=== PATIENT | female | born 1965 | race African-American/Black ===

== ENCOUNTER 2021-03-14 11:25 | Outpatient (CLI) | payer OTHER, SELFPAY ==
--- NOTE | ~2021-03-14 | MM_ITS ---
EXAMINATION: MM screening rafat BI w karina HISTORY: Screening mammogram TECHNIQUE: Craniocaudal and mediolateral oblique 3-D tomosynthesis images were obtained and synthetic 2-D images were generated. CAD analysis was submitted and interpreted. COMPARISON: 04/17/2019 BREAST PARENCHYMAL COMPOSITION: There are scattered areas of fibroglandular density. FINDINGS: There is no evidence of suspicious mass, calcification, or architectural distortion to sugg est malignancy in either breast. There has been no suspicious interval change. IMPRESSION: 1. No mammographic evidence of malignancy. 2. Recommend routine screening mammography in one year. BI-RADS Category 1: Negative Reviewed, dictated and finalized at location A. SETTER
== END 2021-03-14 11:26 | disposition home or self-care (01) ==
PROVIDERS: PCP Family Medicine; Visit Provider Obstetrics & Gynecology
DX: Z12.31 Encounter for screening mammogram for malignant neoplasm of breast (principal)
CPT/HCPCS: 77063; 77067

== ENCOUNTER 2023-03-04 09:57 | Outpatient (CLI) | payer OTHER, SELFPAY ==
--- NOTE | ~2023-03-04 | MM_ITS ---
EXAMINATION: MM screening rafat BI w karina HISTORY: Screening mammogram TECHNIQUE: Craniocaudal and mediolateral oblique 3-D tomosynthesis images were obtained and synthetic 2-D images were generated. CAD analysis was submitted and interpreted. COMPARISON: 03/14/2021, 04/17/2019 BREAST PARENCHYMAL COMPOSITION: There are scattered areas of fibroglandular density. FINDINGS: No suspicious mass, calcification, or architectural distortion are identified in either brian ast to suggest malignancy. There has been no suspicious interval change. IMPRESSION: 1. No mammographic evidence of malignancy. 2. Recommend routine screening mammography in one year. BI-RADS Category 1: Negative Reviewed, dictated and finalized at location A. TLINE JOINER OVERLOCK
== END 2023-03-04 09:58 | disposition home or self-care (01) ==
LOC: ANHIMG 10:01
PROVIDERS: PCP Family Medicine; Visit Provider Obstetrics & Gynecology
DX: Z12.31 Encounter for screening mammogram for malignant neoplasm of breast (principal)
CPT/HCPCS: 77063; 77067

== ENCOUNTER 2024-07-30 07:53 | Outpatient (CLI) | payer OTHER, SELFPAY ==
--- NOTE | ~2024-07-30 | MM_ITS ---
EXAMINATION: MM screening rafat BI w karina HISTORY: Screening TECHNIQUE: Craniocaudal and mediolateral oblique 3-D tomosynthesis images were obtained and synthetic 2-D images were generated. CAD analysis was submitted and interpreted. COMPARISON: Comparison to multiple prior studies sequentially, with oldest reviewed study dated 04/17. BREAST PARENCHYMAL COMPOSITION: Not dense: There are scattered areas of fibroglandular density. FINDINGS: There is no evidence of suspicious mass, calcification, or architectural distortion to sugg est malignancy in either breast. There has been no suspicious interval change. IMPRESSION: 1. No mammographic evidence of malignancy. 2. Recommend routine screening mammography in one year. BI-RADS Category 1: Negative Reviewed, dictated and finalized at location A.
--- OUTSIDE RECORDS SUMMARY | 2024-07-30 08:10 | XMS_ITS | Referral Summary ---
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 Name Role Phone Corrine Robert NP Primary Care Provider [phone] Encounters Date Type Department Care Team Description 07/30/2024 Results Follow-Up Family Care at [address] [address] Corrine Robert NP 07/10/2024 3:20 PM CDT Lab [address] [id number] Annual physical exam; Screening for diabetes mellitus; Screening for lipid disorders; Screening for deficiency anemia; Need for hepatitis C screening test; Need for hepatitis B screening test; Screening for thyroid disorder 07/10/2024 2:30 PM CDT Office Visit Family Care at [address] [address] Corrine Robert NP Annual physical exam (Primary Dx); Hyperpigmentation; Screening for diabetes mellitus; Screening for lipid disorders; Screening for thyroid disorder; Screening for deficiency anemia; Screening for depression; Need for hepatitis C screening test; Need for hepatitis B screening test; Referred by primary care physician from Last 3 Months Allergies Active Allergy Reactions Criticality Noted Date Comments Metronidazole Hives Medium 01/04/2019 Fluconazole Hives,Rash Medium 01/04/2019 Shellfish Derived Itching Low 04/05/2020 Medications estradiol (ESTRACE) 1 mg tablet TK 1 T PO QD 1 9 Active valACYclovir (VALTREX) 500 mg tablet TK 1 T PO Q 12 H FOR 7 DAYS THEN 1 T DAILY 0 9 Active multivitamin capsule Take 1 capsule by mouth daily 07/11/19 Discontinu ed(Patient Reported) bifidobacteri bifid.and longum 460 mg (9-1 bill.cell) capsule Take by mouth 07/11/19 Discontinu ed(Patient Reported) ibuprofen (ADVIL,MOTRIN) 800 mg tablet 9 07/11/19 25 Discontinu ed(Patient Reported) omeprazole (PriLOSEC) 20 mg capsule Take 1 capsule (20 mg total) by mouth 2 (two) times a day before breakfast and dinner 28 capsule 9 07/11/19 Discontinu ed(Patient Reported) clindamycin (CLEOCIN) 300 mg capsule 9 07/11/19 Discontinu ed(Patient Reported) benzocaine-ment hoL (CEPACOL) 15-3.6 mg lozenge Dissolve 1 lozenge in the mouth every 2 (two) hours as needed (pharyngitis) 18 lozenge 1 07/11/19 Discontinu ed(Patient Reported) Active Problems Problem Noted Date Diagnosed Date Class 1 obesity without seri ous comorbidity with body mass index (BMI) of 31.0 to 31.9 in adult 07/30/2024 Assessment & Plan (07/30/2024 6:45 AM CDT): Wt Readings from Last 3 Encounters: 07/10/24 77.8 kg (171 lb 9.6 oz) 12/18/22 82 kg (180 lb 12.4 oz) 09/14/20 78 kg (172 lb) BMI Follow-up includes: education provided. 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 09/25/2019 Assessment & Plan (09/25/2019 4:03 PM CDT): Pt states long standing watering since she was a teen but worse lately -No sign of NLDO/stenosis today +h/o contact lens (CL) wear; extended wear +eye rubbing/mucous fishing Plan: -avoid rubbing/touching eyes -sleep with sleep Mask at night -RX FML drops QID both eyes (OU) X 2 weeks then BID X 2 weeks -hold contact lens (CL) wear for now -RTC 1 month Abnormal UGI series 09/14/2018 Overview (09/14/2018): Added automatically from request for surgery [id number] Lower abdominal pain 09/14/2018 Overview (09/14/2018): Added automatically from request for surgery [id number] Epigastric abdominal pain 09/14/2018 Overview (09/14/2018): Added automatically from request for surgery [id number] Resolved Problems Problem Noted Date Diagnosed Date Resolved Date Colon cancer screening 09/14/201807/10 Overview (09/14/2018): Added automatically from request for surgery [id number] Immunizations Immunization Administration Dates Next Due Influenza, Split 03/28/2017 Influenza, Unspecified 05/27/2024(Deferred: Frida ent Refused) Tdap 12/07/2018 Social History Tobacco Use Types Packs/Day Years Used Date Smoking Tobacco: Never Smokeless Tobacco: Never Tobacco Cessation:Counseling Given: No Alcohol Use Standard Drinks/Week Comments Not Currently 0 (1 standard drink = 0.6 oz pur e alcohol) AUDIT-C Answer Date Recorded Q1: How often do you have a drink containing alcohol? Never 07/10/2024 Q2: How many drinks containi ng alcohol do you have on a typical day when you are drinking? Patient does not drink Q3: How often do you have si x or more drinks on one occasion? Never 07/10/2024 PHQ-2 Answer Date Recorded PHQ-2 Total Score 0 07/10/2024 PHQ-9 Answer Date Recorded PHQ-9 Total Score 0 07/10/2024 Personal Safety Answer Date Recorded Have you ever been in or are you currently in a harmful physical or emotional relationship or is someone making you feel afraid or unsafe? Denies 12/18/2022 Comments No Sex and Gender Information Value Date Recorded Sex Assigned at Not on file Legal Sex Female 9:26 AM [employer] Gender Identity Not on file Sexual Orientation Not on file Last Filed Vital Signs Vital Sign Reading Time Taken Comments Blood Pressure 133/80 07/10/2024 2:28 PM CDT Pulse 70 07/10/2024 2:28 PM CDT Temperature 36.7 C (98 F) 07/10/2024 2:28 PM CDT Respiratory Rate 20 07/10/2024 2:28 PM CDT Oxygen Saturation 98% 07/10/2024 2:28 PM CDT Inhaled Oxygen Concentration - - Weight 77.8 kg (171 lb 9.6 oz) 07/10/2024 2:28 P M CDT Height 157.5 cm (5' 2 ) 07/10/2024 2:28 PM CDT Body Mass Index 31.39 07/10/2024 2:28 PM CDT Plan of Treatment Not on file Procedures Procedure Name Priority Date/Time Associated Diagnosis Comments EGFR Routine 07/10/2024 3:32 PM CDT Annual physical exam Screening for diabetes mellitus Screening for lipid disorders DIFFERENTIAL AUTO Routine 07/10/2024 3:3 2 PM CDT Annual physical exam Screening for deficiency anemia LIPID PANEL Routine 07/10/2024 3:32 PM CDT Annual physical exam Screening for lipid disorders THYROID FUNCTION CASCADE Routine 07/10/2024 3:32 PM CDT Annual physical exam Screening for thyroid disorder Screening for deficiency anemia CBC WITH AUTO DIFFERENTIAL Routine 07/10/2024 3:32 PM CDT Annual physical exam Screening for deficiency anemia COMPREHENSIVE METABOLIC PANEL Routine 07/10/2024 3:32 PM CDT Annual physical exam Screening for diabetes mellitus Screening for lipid disorders HEMOGLOBIN A1C Routine 07/10/2024 3:32 PM CDT Annual physical exam Screening for diabetes mellitus URINALYSIS AND REFLEX TO MICROSCOPIC AND CULTURE Routine 07/10/2024 3:22 PM CDT Annual physical exam Screening for diabetes mellitus HEPATITIS B SURFACE ANTIGEN Routine 07/10/2024 3:22 PM CDT Need for hepatitis B screening test HEPATITIS B CORE ANTIBODY, TOTAL Routine 07/10/2024 3:22 PM CDT Need for hepatitis B screening test HEPATITIS B SURFACE ANTIBODY (IMMUNE STATUS) Routine 07/10/2024 3:22 PM CDT Need for hepatitis B screening test HEPATITIS C ANTIBODY Routine 07/10/2024 3:22 PM CDT Need for hepatitis C screening test COLONOSCOPY 12/04/2018 10:58 AM CDT from Last 3 Months or Most Recently Relevant to Health Maintenance Results * eGFR (07/10/2024 3:32 PM CDT) eGFR 69 >=60 mL/min/1. 73 m2 Comment: Interpretive Data Reference Interval Normal >/= 90 mL/min/1.73m2 Mildly decreased* 60 - 89 mL/min/1.73m2 Mildly to moderately decreased 45 - 59 mL/min/1.73m2 Moderately to severely decreased 30 - 44 mL/min/1.73m2 Severely decreased 15 - 29 mL/min/1.73m2 Kidney Failure < 15 mL/min/1.73m2 *Relative to young adult level Estimated glomerular filtration rate is determined by the 2020 CKD-EPI equation recommended by the National Kidney Foundation (A Unifying Approach to GFR Estimation: Recommendations of the NKF-ASK Task Force on Reassessing the Inclusion of Race in Diagnosing Kidney Disease, JASN 2020). The CKD-EPI equation should not be used for patients with unstable renal function and has not been validated in children and those over 70. Current interpretive data was last reviewed 2021. Blood 07/10/2024 3:32 PM CDT 07/10/2024 3:32 PM CDT us Corrine Robert NP LAB BLOOD ORDERABLES Final Resul t [facility] [address] [place] [address] * Differential, auto (07/10/2024 3:32 PM CDT) Neutrophil abs 4.34 1.50 - 6.50 K/cumm Imm gran abs 0.02 0.00 - 0.10 K/cumm [facility] Lymphocyte abs 3.19 0.80 - 3.30 K/cumm [facility] Monocyte abs 0.54 0.20 - 0.80 K/cumm [facility] Eosinophil abs 0.22 0.00 - 0.50 K/cumm [facility] Basophil abs 0.05 0.00 - 0.10 K/cumm [facility] Neutrophil pct 51.9 % [facility] Comment: Interpretive Data Percent cell count reference ranges are not reported, since discordance with absolute values may lead to misinterpretation of CBC data. Current Interpretive Data was last revised on 2017. Imm gran pct 0.2 % [facility] Comment: Interpretive Data Percent cell count reference ranges are not reported, since discordance with absolute values may lead to misinterpretation of CBC data. Current Interpretive Data was last revised on 2017. Lymphocyte pct 38.2 % [facility] Comment: Interpretive Data Percent cell count reference ranges are not reported, since discordance with absolute values may lead to misinterpretation of CBC data. Current Interpretive Data was last revised on 2017. Monocyte pct 6.5 % [facility] Comment: Interpretive Data Percent cell count reference ranges are not reported, since discordance with absolute values may lead to misinterpretation of CBC data. Current Interpretive Data was last revised on 2017. Eosinophil pct 2.6 % [facility] Comment: Interpretive Data Percent cell count reference ranges are not reported, since discordance with absolute values may lead to misinterpretation of CBC data. Current Interpretive Data was last revised on 2017. Basophil pct 0.6 % [facility] Comment: Interpretive Data Percent cell count reference ranges are not reported, since discordance with absolute values may lead to misinterpretation of CBC data. Current Interpretive Data was last revised on 2017. Blood 07/10/2024 3:32 PM CDT 07/10/2024 3:32 PM CDT Corrine Robert NP LAB BLOOD ORDERABLES Final Resul t Performing Organization Address City/[facility] Co de Phone Number [facility] CABALLERO [phone] [facility] [employer] [place], [place] [id number] * Thyroid Function [place] (07/10/2024 3:32 PM CDT) TSH 1.14 0.30 - 4.20 mcIUnit/mL Blood 07/10/2024 3:32 PM CDT 07/10/2024 3:32 PM CDT Corrine Robert NP LAB BLOOD ORDERABLES Final Resul t Performing Organization Address [facility] Co de Phone Number TASHA CABALLERO [address] [address] [facility] [place] [place] [address] * CBC with auto differential (07/10/2024 3:32 PM CDT) WBC 8.36 3.80 - 9.90 K/cumm Hgb 14.0 11.9 - 15.5 g/dL [facility] Hct 42.0 35.6 - 45.5 % [facility] Plt 330 150 - 400 K/cumm [facility] MPV 9.4 9.1 - 12.3 fL [facility] RBC 4.69 3.90 - 5.20 M/cumm [facility] MCV 89.6 81.3 - 96.4 fL [facility] MCH 29.9 27.1 - 33.3 pg [facility] MCHC 33.3 32.3 - 35.7 g/dL [facility] RDW CV 13.9 11.1 - 14.9 % [facility] RDW SD 45.5 35.7 - 48.1 fL [facility] NRBC abs 0.00 0.00 - 0.01 K/cumm [facility] Blood 07/10/2024 3:32 PM CDT 07/10/2024 3:32 PM CDT us Corrine Robert NP LAB BLOOD ORDERABLES Final Resul t Performing Organization Address City/[facility] Co de Phone Number TASHA CABALLERO [address] [address] [facility] [place] [place] [address] * Hemoglobin A1c (07/10/2024 3:32 PM CDT) Hgb A1C 5.6 4.0 - 5.6 % Estimated Average Glucose 114 mg/dL [facility]ALLERO Comment: The ADA recommends reporting an estimated Average Glucose (eAG) with all Hemoglobin A1c results using the equation derived from a study of 507 normal and diabetic adults. Minority populations were underrepresented and children were not included. (Diabetes Care 31:8348-4138, 2008). The eAG is not equivalent to a fasting glucose. Blood 07/10/2024 3:32 PM CDT 07/10/2024 3:32 PM CDT us Corrine Robert NP LAB BLOOD ORDERABLES Final Resul t [facility] [address] [address] [place] [address] * (ABNORMAL) Lipid panel (07/10/2024 3:32 PM CDT) Cholesterol 230(H) 30 - 199 mg/dL Comment: Interpretive Data Ages < or = 19 years Acceptable: <170 mg/dL Borderline high: 170-199 mg/dL High: >or= 200 mg/dL Ages > or = 20 years Desirable: <200 mg/dL Borderline high: 200-239 mg/dL High: >or= 240 mg/dL Literature References: 1. Expert Panel on Integrated Guidelines for Cardiovascular Health and Risk Reduction in Children and Adolescents. Pediatrics 2011;128:S213 2. NCEP Expert Panel. Circulation 2004;110:227 Current Interpretive Data was last revised on 2017. Triglycerides 369(H) <=149 mg/dL [facility]ERO Comment: Interpretive Data Ages < or = 9 years Acceptable: <75 mg/dL Borderline high: 75-99 mg/dL High: >or= 100 mg/dL Ages 10 to 20 years Acceptable: <90 mg/dL Borderline high: 90-129 mg/dL High: >or= 130 mg/dL Ages > or = 20 years Desirable: <150 mg/dL Borderline high: 150-199 mg/dL High: 200-499 mg/dL Very high: >or= 499 mg/dL Literature References: 1. Expert Panel on Integrated Guidelines for Cardiovascular Health and Risk Reduction in Children and Adolescents. Pediatrics 2011;128:S213 2. NCEP Expert Panel. Circulation 2004;110:227 Current Interpretive Data was last revised on 2017. HDL 47 >=40 mg/dL [facility]ALLERO Comment: Interpretive Data Ages < or = 19 years Acceptable: >45 mg/dL Borderline low: 40-45 mg/dL Low: <40 mg/dL Ages > or = 20 years Desirable: >or= 60 mg/dL Low: <40 mg/dL Literature References: 1. Expert Panel on Integrated Guidelines for Cardiovascular Health and Risk Reduction in Children and Adolescents. Pediatrics 2011;128:S213 2. NCEP Expert Panel. Circulation 2004;110:227 Current Interpretive Data was last revised on 2017. LDL, calculated 119 <=129 mg/dL [facility] CABALLERO Comment: Interpretive Data Ages < or = 19 years Acceptable: <110 mg/dL Borderline high: 110-129 mg/dL High: >or= 130 mg/dL Ages > or = 20 years Optimal: <100 mg/dL Near optimal: 100-129 mg/dL Borderline high: 130-159 mg/dL High: >160 mg/dL Calculated using the Corona LDL-C estimating equation. This equation was implemented on 2023. Prior to this date LDL-C was estimated using the Friedewald equation. Literature References: 1. Expert Panel on Integrated Guidelines for Cardiovascular Health and Risk Reduction in Children and Adolescents. Pediatrics 2011;128:S213 2. NCEP Expert Panel. Circulation 2004;110:227 3. Corona Le. CHRIS Cardiol. 2019July 26;5(5):540-548. doi: 10.1001/jamacardio.2020.0013 Current Interpretive Data was last revised on 2023. Non-HDL Cholesterol 183 mg/dL [facility]ALLERO Comment: Interpretive Data Ages < or = 19 years Acceptable: <120 mg/dL Borderline high: 120-144 mg/dL High: >145 mg/dL Ages > or = 20 years When triglycerides are >200 mg/dL, Non-HDL cholesterol is a secondary target of therapy with treatment goals that are 30 mg/dL greater than the LDL cholesterol target. Literature References: 1. Expert Panel on Integrated Guidelines for Cardiovascular Health and Risk Reduction in Children and Adolescents. Pediatrics 2011;128:S213 2. NCEP Expert Panel. Circulation 2004;110:227 Current Interpretive Data was last revised on 2017. Chol/HDL ratio 5 [facility] Blood 07/10/2024 3:32 PM CDT 07/10/2024 3:32 PM CDT Corrine Robert NP LAB [place]LO[place] [address] [place] [address] * Comprehensive metabolic panel (07/10/2024 3:32 PM CDT) Sodium 142 135 - 145 mmol/L Potassium, pl 3.9 3.3 - 4.9 mmol/L [facility] Chloride 103 97 - 110 mmol/L [facility] CO2 28 22 - 32 mmol/L [facility] Anion gap 11 2 - 15 mmol/L [facility] BUN 14 6 - 25 mg/dL [facility] Creatinine 0.95 0.60 - 1.10 mg/dL [facility] Glucose 86 70 - 199 mg/dL [facility] Comment: Interpretive Data Fasting glucose >/= 126 mg/dl is diagnostic for diabetes. Fasting is defined as no caloric intake for at least 8 hours. Fasting glucose between 100 mg/dl to 125 mg/dl is diagnostic of prediabetes. In a patient with classic symptoms of hyperglycemia or hyperglycemic crisis, a random glucose >/= 200 mg/dl is diagnostic for diabetes. In the absence of unequivocal hyperglycemia, results should be confirmed by repeat testing. The classification and Diagnosis of Diabetes Diabetes Care 2021; 46: S19-S40. Current interpretive data was last revised 2022. Calcium 9.8 8.5 - 10.3 mg/dL [facility] Bilirubin, total 0.2 0.1 - 1.2 mg/dL [facility] Protein, pl 7.6 6.5 - 8.5 g/dL [facility] Albumin 4.2 3.5 - 5.0 g/dL [facility] Alk phos 51 40 - 130 Units/L [facility] ALT 13 7 - 45 Units/L [facility] AST 22 10 - 45 Units/L [facility] Blood 07/10/2024 3:32 PM CDT 07/10/2024 3:32 PM CDT Corrine Robert NP LAB BLOOD ORDERABLES Final Resul t Performing Organization Address City/[facility]/ZIP Co de Phone Number T[facility]HA CABALLERO [address] [place] [address] * Urinalysis reflex to microscopic and culture Urine, bladder (07/10/2024 3:22 PM CDT) Color, ur Yellow Yellow Clarity, ur Clear Clear [facility] Specific gravity, ur 1.019 1.003 - 1.030 [facility] pH, urine 6.0 [facility] Comment: Interpretive Data U rine pH is affected by diet, medications, systemic acid-base disturbances, and renal tubular function. pH may affect urinary stone formation. For example, urine pH below 6.0 may help reduce the tendency for calcium phosphate stones and pH greater than 6.0 may reduce the tendency for uric acid stone formation. Source: [facility] [employer] Current Interpretive Data was last revised on 2017 Protein, ur ql Negative Negative [facility] Glucose, ur ql Negative Negative [facility] Ketones, ur Negative Negative [facility] Bilirubin, ur Negative Negative [facility] Blood, ur Negative Negative [facility] Urobilinogen, ur <2.0 <2.0 mg/dL [facility] Nitrite, ur Negative Negative [facility] Leukocyte esterase, ur Negative Negative [facility] UA reflex comment Reflex conditions for microscopic UA and culture not met. [facility] Urine, bladder 07/10/2024 3: 22 PM CDT 07/10/2024 3:35 PM CDT us Corrine Robert NP LAB MICROBIOLOGY - GENERAL ORDER MATILDA Final Result [facility] CABALLERO [address] Department [place] [employer] [place] [address] * Hepatitis C antibody Blood (07/10/2024 3:22 PM CDT) [facility] Hep C Ab Nonreactive Nonreactive Comment: Interpretive Data Nonreactive: Antibodies to HCV not detected. Does NOT exclude the possibility of recent exposure to HCV. Equivocal: Equivocal for HCV antibodies. Supplemental molecular testing will be automatically performed to determine infection status in accordance with current CDC screening recommendations. Reactive: Positive for HCV antibodies. This may represent current or past HCV infection. Supplemental molecular testing will be automatically performed to determine current infection status in accordance with current CDC screening recommendations. Interpretive data was last revised on 2019. Blood 07/10/2024 3:22 PM CDT 07/10/2024 3:31 PM CDT Corrine Robert NP LAB MICROBIOLOGY - GENERAL ORDER MATILDA Final Result Performing Organization Address City/[facility] Co de Phone Number [facility] [address] [place] [address] * Hepatitis B core antibody, total Blood (07/10/2024 3:22 PM CDT) [facility] Hep B core IgG/IgM Nonreactive Nonreactive Comment:Testing performed by : [facility], [address] [place]., [address] Blood 07/10/2024 3:22 PM CDT 07/11/2024 10:04 AM CDT Corrine Robert NP [facility] MICROBIOLOGY - GENERAL ORDER MATILDA Final Result Performing Organization Address City/[facility]/[place] Number [place] [address] [address] [place] [address] * Hepatitis B surface antibody (immune status) Blood (07/10/2024 3:22 PM CDT) [facility] HBsAb (immune status) Nonreactive Comment: Interpretive Data Nonreactive: This result is consistent with a lack of immunity to Hepatitis B Virus when used in the setting of routine screening. Equivocal: The immune status of the individual should be further assessed, if appropriate, after consideration of clinical status, risk factors, and additional diagnostic information. Reactive: This result is consistent with immunity to Hepatitis B Virus when used in the setting of routine screening. Current interpretive data was last revised on 19. Blood 07/10/2024 3:22 PM CDT 07/10/2024 3:31 PM CDT Corrine Robert NP LAB MICROBIOLOGY - GENERAL ORDER MATILDA Final Result Performing Organization Address [facility] de Phone Number TASHA CABALLERO [address] [address] [facility] [place] [address] * Hepatitis B Surface Antigen Blood (07/10/2024 3:22 PM CDT) HepBsAg Nonreactive Nonreactive Blood 07/10/2024 3:22 PM CDT 07/10/2024 3:31 PM CDT Corrine Robert NP LAB MICROBIOLOGY - GENERAL ORDER MATILDA Final Result Performing Organization Address [facility] [place] [address] [address] [facility] [place] [address] * COLONOSCOPY (12/04/2018 10:58 AM CDT) Anatomical Region Laterality Modality Other Narrative Procedure Note Costa Gonzalez MD - 12/04/2018 10:58 AM CDT [facility] Patient Name: Lorie Bateman Procedure Date: 12/04/2018 10:58 AM Date of : 1965 Admit Type: Outpatient Age: 52 Gender: Female Attending MD: Costa Gonzalez M.D. Room: [facility] ENDOSCOPY ROOM 5 Note Status: Finalized Procedure: Colonoscopy Indications: Screening for colorectal malignant neoplasm. Lower abdominal pain. Referring MD: Wilbur Fuller M.D. Providers: Costa Gonzalez M.D., Chilango Rivera M.D. Medicines: Monitored Anesthesia Care Complications: No immediate complications. Estimated Blood Loss: Estimated blood loss was minimal. Procedure: Pre-Anesthesia Assessment: - Prior to the procedure, a History and Physical was performed, and patient medications and allergieswere reviewed. The patient is competent. The risks and benefits of the procedure and the sedation optionsand risks were discussed with the patient. All questions were answered and informed consent was obtained. Patient identification and proposed procedure were verified by the physician in the pre-procedure area. Mental Status Examination: alert and oriented.Airway Examination: normal oropharyngeal airway and neck mobility. Respiratory Examination: clear to auscultation. CV Examination: normal. Prophylactic Antibiotics: The patient does not requireprophylactic antibiotics. Prior Anticoagulants: The patient has taken no previous anticoagulant or antiplateletagents. ASA Grade Assessment: II - A patient with mildsystemic disease. After reviewing the risks and benefits, the patient was deemed in satisfactory condition toundergo the procedure. The anesthesia plan was to usemonitored anesthesia care (MAC). Immediately prior to administration of medications, the patient was re-assessed for adequacy to receive sedatives. The heart rate, respiratory rate, oxygen saturations,blood pressure, adequacy of pulmonary ventilation, and response to care were monitored throughout the procedure. The physical status of the patient was re-assessed after the procedure. - Immediately prior to administration ofmedications, the patient was re-assessed for adequacy to receive sedatives. - The risks and benefits of the procedure and the sedation options and risks were discussed with the patient. All questions were answered and informed consent was obtained. The benefits, risks and alternatives of theprocedure and sedation were discussed and informed consent was obtained. All questions were answered. Please referto the signed informed consent document in the medical record. The scope was passed under direct vision.The [id number] [id number] endoscope was introduced throughthe anus and advanced to the cecum, identified by appendiceal orifice and ileocecal valve. The colonoscopy was performed without difficulty. The patient tolerated the procedure well. The quality of the bowel preparation was good. The bowelpreparation used was CoLyte. Bowel prep was administered using a split dose. Findings: The perianal and digital rectal examinations were normal. A 2 mm polyp was found in the recto-sigmoid colon. The polyp was semi-sessile. The polyp was removed with a cold snare. Resection and retrieval were complete. Verification of patient identification forthe specimen was done. Estimated blood loss was minimal. The exam was otherwise without abnormality on direct and retroflexion views. Impression: - One 2 mm polyp at the recto-sigmoid colon, removed with a cold snare. Resected and retrieved. - The examination was otherwise normal on direct and retroflexion views. Recommendation: - Discharge patient to home. - Resume previous diet. - Continue present medications. - Await pathology results. - Repeat colonoscopy in 5 years for surveillancebased on pathology results. - Return to GI office in 4 weeks. Attending Participation: I was present and participated during the entire procedure from insertion to removal of the endoscope. Electronically signed by Costa Gonzalez MD Costa Gonzalez M.D. 12/04/2018 11:42:12 AM . Number of Addenda: 0 Note Initiated On: 12/04/2018 10:58 AM Recognized by the Citizen Of [employer] [place] [employer] for promoting quality in endoscopy Costa Gonzalez MD ENDOSCOPY PROCEDURES Final Result from Last 3 Months or Most Recently Relevant to Health Maintenance Insurance CIG 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
--- OUTSIDE RECORDS SUMMARY | 2024-07-30 08:10 | XMS_ITS | Encounter Summary ---
Author Organization [facility] Healthcare Address [address] [place] [address] Care Team Providers Care Manager Bar Name Role Phone Corrine Robert NP Primary Care Provider [phone] Encounter Details Date Type Department Care Team (Late st Contact Info) Description 07/30/2024 Results Follow-Up Family Care at [facility] [address] [place] [phone] [place] [id number] [place] [id number] Social History Tobacco Use Types Packs/Day Years Used Date Smoking Tobacco: Never Smokeless Tobacco: Never Alcohol Use Standard Drinks/Week Comments Not Currently [...] on file 

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
--- OUTSIDE RECORDS SUMMARY | 2024-07-30 08:10 | XMS_ITS | Clinical Summary ---
Author Organization [facility] Address [address] [place] [address] Care Team Providers Care Tile Fitter Name Role Phone Yasmany Brower MD Primary Care Provider [phone] Allergies Active Allergy Reactions Criticality Noted Date Comments Fluconazole Hives,Rash Medium 01/04/2019 Metronidazole Hives Medium 01/04/2019 Shellfish-Derived Products Itching Low Medications Cholecalciferol (VITAMIN D) 50 MCG (1999 UT) Tab Take 1 tablet (2,000 Units total) by mouth daily. Active estradiol (ESTRACE) 2 MG tablet Take 1 tablet (2 mg total) by mouth daily. Active Black Cohosh 80 MG Cap Take 80 mg by mouth daily. Active amLODIPine (NORVASC) 5 MG tablet Take 1 tablet (5 mg total) by mouth daily. 30 tablet 1 03/08/2023 Active pravastatin (PRAVACHOL) 20 MG tablet Take 1 tablet (20 mg total) by mouth nightly at bedtime. 30 tablet 03/07/2023 Active Active Problems Problem Noted Date Diagnosed Date Hypertensive urgency 03/07/2023 Social History Tobacco Use Types Packs/Day Years Used Date Smoking Tobacco: Never Smokeless Tobacco: Never Tobacco Cessation:Counseling Given: Not Answered Alcohol Use Standard Drinks/Week Comments Never 0 (1 standard drink = 0.6 oz pur e alcohol) [facility] Utilities Answer Date Recorded In the past 12 months has e electric, gas, oil, or water company threatened to shut off services in your home? No 03/07/2023 Humiliation, Afraid, Rape, and Kick questionnair e Answer Date Recorded Within the last year, have y ou been afraid of your partner or ex-partner? No 03/07/2023 Within the last year, have y ou been humiliated or emotionally abused in other ways by your partner or ex-partner? No Within the last year, have y ou been kicked, hit, slapped, or otherwise physically hurt by your partner or ex-partner? No 03/07/2023 Within the last year, have y ou been raped or forced to have any kind of sexual activity by your partner or ex-partner? No 03/07/2023 AUDIT-C Answer Date Recorded Q1: How often do you have a drink containing alc ohol? Never 09/11/2020 Average Number of Drinks Not on file 021 Frequency of Binge Drinking Not on file 08/26 Overall Financial Resource Strain (CARDIA) Answe r Date Recorded How hard is it for you to pa y for the very basics like food, housing, medical care, and heating? Not very hard 03/07/2023 Hunger Vital Sign Answer Date Recorded Within the past 12 months, y ou worried that your food would run out before you got the money to buy more. Never true 03/07/20 23 Within the past 12 months, t he food you bought just didn't last and you didn't have money to get more. Never true 03/07/2023 PRAPARE - Transportation Answer Date Re corded In the past 12 months, has l ack of transportation kept you from medical appointments or from getting medications? No 02/25 In the past 12 months, has l ack of transportation kept you from meetings, work, or from getting things needed for daily living? No 03/07/2023 Housing Stability Vital Sign Answer Ernst e Recorded In the last 12 months, was t here a time when you were not able to pay the mortgage or rent on time? No 03/07/2023 In the last 12 months, how many places have you lived? 1 03/07/2023 In the last 12 months, was t here a time when you did not have a steady place to sleep or slept in a halfway (including now)? 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 Gender Identity Not on file Sexual Orientation Not on file Last Filed Vital Signs Vital Sign Reading Time Taken Comments Blood Pressure 122/78 03/07/2023 1:37 PM RETURN TO FACTORY CLERK Pulse 71 03/07/2023 8:12 AM RETURN TO FACTORY CLERK Temperature 36.7 C (98 F) 03/07/2023 1:37 PM RETURN TO FACTORY CLERK Respiratory Rate 23 03/07/2023 1:37 PM RETURN TO FACTORY CLERK Oxygen Saturation 99% 03/07/2023 1:37 PM RETURN TO FACTORY CLERK Inhaled Oxygen Concentration - - Weight 83.3 kg (183 lb 10.3 oz) 03/06/2023 8:26 PM RETURN TO FACTORY CLERK Height 157.5 cm (5' 2 ) 03/06/2023 8:26 PM RETURN TO FACTORY CLERK Body Mass Index 33.59 03/06/2023 8:26 PM RETURN TO FACTORY CLERK Plan of Treatment Health Maintenance Due Date Last Done Comments Colorectal Cancer Screening Colonoscopy (10 Years) 1965 Annual Physical 1968 Hepatitis C 12/15/1983 DTaP, Tdap and Td Vaccines ( 1 - Tdap) 1984 Hepatitis B Vaccines (1 of 3 - 19+ 3-dose series) 1984 Mammogram Screening 2005 Pneumococcal Vaccine: 50+ Ye ars (1 of 1 - PCV) 12/15/2015 Zoster Vaccines (1 of 2) 12/15/2015 COVID-19 Vaccine ( - 2023-2 5 season) 2023 Meningococcal B Vaccine Aged Out No l onger eligible based on patient's age to complete this topic Meningococcal Vaccine Aged Out No brittney khadar eligible based on patient's age to complete this topic RSV Immunizations Under 20 Months Aged Out No longer eligible based on patient's age to complete this topic Insurance MEDICAID Advance Directives * Full Code (Latest Code Status on File) Date Activated Date Inactivated Comments 03/07/2023 1:24 AM 03/07/2023 4:59 PM Care Teams Tile Fitter Relationship Specialty Start Date End Date Yasmany Brower MD [address] [place] [address] PCP - General FAMILY PRACTICE 04/05/20
--- OUTSIDE RECORDS SUMMARY | 2024-07-30 08:10 | XMS_ITS | Clinical Summary ---
Author Organization [facility] Address [address] [place] [address] Care Team Providers Care Byproduct Engineer Name Role Phone Corrine Robert NP Primary Care Provider [phone] Allergies Active Allergy Reactions Criticality Noted Date [...] Take 1 capsule by mouth daily 07/11/19 25 Discontinu ed(Patient Reported) bifidobacteri bifid.and longum 460 mg (9-1 bill.cell) capsule Take by mouth 07/11/19 25 Discontinu ed(Patient Reported) ibuprofen (ADVIL,MOTRIN) 800 mg tablet 9 07/11/19 25 Discontinu ed(Patient Reported) omeprazole (PriLOSEC) 20 mg capsule Take 1 capsule (20 mg total) by mouth 2 (two) times a day before breakfast and dinner 28 capsule 9 07/11/19 25 Discontinu ed(Patient Reported) clindamycin (CLEOCIN) 300 mg capsule 9 07/11/19 25 Discontinu ed(Patient Reported) benzocaine-ment hoL (CEPACOL) 15-3.6 mg lozenge Dissolve 1 lozenge in the mouth every 2 (two) hours as needed (pharyngitis) 18 lozenge 1 07/11/19 25 Discontinu ed(Patient Reported) Active Problems Problem Noted [...] (09/14/2018): Added automatically from request for surgery [id number] Lower abdominal pain 09/14/2018 Overview (09/14/2018): Added automatically from request for surgery [id number] Epigastric abdominal pain 09/14/2018 Overview (09/14/2018): Added automatically from request for surgery [id number] Resolved Problems Problem Noted Date Diagnosed Date Resolved Date Colon cancer screening 09/14/201807/10 Overview (09/14/2018): Added automatically from request for surgery [id number] Encounters Date Type Department Care Team Description 07/30/2024 Results Follow-Up Family Care at [address] [id number] Corrine Robert NP 07/10/2024 3:20 PM CDT Lab [address] [address] Annual physical exam; Screening for diabetes mellitus; Screening for lipid disorders; Screening for deficiency anemia; Need for hepatitis C screening test; Need for hepatitis B screening test; Screening for thyroid disorder 07/10/2024 2:30 PM CDT Office Visit Family Care at [address] [phone] Corrine Robert NP Annual physical exam (Primary Dx); Hyperpigmentation; Screening for diabetes mellitus; Screening for lipid disorders; Screening for thyroid disorder; Screening for deficiency anemia; Screening for depression; Need for hepatitis C screening test; Need for hepatitis B screening test; Referred by primary care physician from Last 3 Months Immunizations Immunization Administration Dates Next Due Influenza, Split 03/28/2017 Influenza, Unspecified 05/27/2024(Deferred: Frida ent Refused) Tdap 12/07/2018 Surgical History Surgery Date Site/Laterality Comments CHOLECYSTECTOMY HYSTERECTOMY TUBAL LIGATION Medical History Medical History Date Comments Hypertension Colon cancer screening 09/14/2018 Added aut omatically from request for surgery [id number] Family History Medical History Relation Name Comments Diabetes Brother Diabetes Mother Hypertension Mother Stroke Mother Colon cancer Neg Hx Relation Name Status Comments Brother Mother Social History Tobacco Use Types Packs/Day Years [...] on file 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 Gender Identity Not on file Sexual Orientation Not on file Obstetrics History Last Filed Vital Signs Vital Sign Reading [...] 07/10/2024 2:28 PM CDT Plan of Treatment Health Maintenance Due Date Last Done Comments Breast Cancer Screening-Mammogram 1965 Zoster Vaccine (1 of 2) 12/15/2015 Influenza Vaccine (Season Ended) 2024 03/28/2017 Depression Screening 07/10/2025 07/10/2024, 07/10/2024 Regular Well Visit/Exam 18-64 07/10/2025 07/10/2024 Colon Cancer Screening-Colonoscopy 12/04/2028 12/04/2018 DTaP/Tdap/Td Vaccine (2 - Td or Tdap) 12/07/2028 12/07/2018 Colon Cancer Screening-CT Colonography Discontinued 12/04/2018 Colon Cancer Screening-DNA Stool Discontinued 12/04/2018 Colon Cancer Screening-FIT Discontinued 12/04/2018 Colon Cancer Screening-Sigmoidoscopy Discontinued 12/04/2018 Hepatitis B Screening Completed 07/10/2024 Hepatitis C Screening Completed 07/10/2024 Pneumococcal vaccine <65 Aged Out No longer eligible based on patient's age to complete this topic Procedures Procedure Name Priority Date/Time Associated Diagnosis [...] NP LAB BLOOD ORDERABLES Final Resul t [facility] [address] [address] Department [place] [address] * Differential, auto (07/10/2024 3:32 PM CDT) Neutrophil abs 4.34 1.50 - 6.50 K/cumm Imm gran abs 0.02 0.00 - 0.10 K/cumm [facility] Lymphocyte abs 3.19 0.80 - 3.30 K/cumm [facility] Monocyte abs 0.54 0.20 - 0.80 K/cumm [facility] Eosinophil abs 0.22 0.00 - 0.50 K/cumm [facility] Basophil abs 0.05 0.00 - 0.10 K/cumm [facility] Neutrophil pct 51.9 % TASHA Comment: Interpretive Data Percent cell count reference ranges are not reported, since discordance with absolute values may lead to misinterpretation of CBC data. Current Interpretive Data was last revised on 2017. Imm gran pct 0.2 % [facility] Comment: Interpretive Data Percent cell count reference ranges are not reported, since discordance with absolute values may lead to misinterpretation of CBC data. Current Interpretive Data was last revised on 2017. Lymphocyte pct 38.2 % CERNER Comment: Interpretive Data Percent cell count reference ranges are not reported, since discordance with absolute values may lead to misinterpretation of CBC data. Current Interpretive Data was last revised on 2017. Monocyte pct 6.5 % CERNER Comment: Interpretive Data Percent cell count reference ranges are not reported, since discordance with absolute values may lead to misinterpretation of CBC data. Current Interpretive Data was last revised on 2017. Eosinophil pct 2.6 % CERNER Comment: Interpretive Data Percent cell count reference ranges are not reported, since discordance with absolute values may lead to misinterpretation of CBC data. Current Interpretive Data was last revised on 2017. Basophil pct 0.6 % CERNER Comment: Interpretive Data Percent cell count reference ranges are not reported, since discordance with absolute values may lead to misinterpretation of CBC data. Current Interpretive Data was last revised on 2017. Blood 07/10/2024 3:32 PM CDT 07/10/2024 3:32 PM CDT Corrine Robert NP LAB BLOOD ORDERABLES Final Resul t Performing Organization Address [facility] Co de Phone Number TASHA CABALLERO [address] [place] [address] * Thyroid Function Bremer (07/10/2024 3:32 PM CDT) Pathologist [facility] TSH 1.14 0.30 - 4.20 mcIUnit/mL Blood 07/10/2024 3:32 PM CDT 07/10/2024 3:32 PM CDT Corrine Robert NP LAB BLOOD ORDERABLES Final Resul t Performing Organization Address [facility] Co de Phone Number TASHA CABALLERO [address] [address] [facility] [place] [address] * CBC with auto differential (07/10/2024 3:32 PM CDT) WBC 8.36 3.80 - 9.90 K/cumm Hgb 14.0 11.9 - 15.5 g/dL [facility] Hct 42.0 35.6 - 45.5 % [facility] Plt 330 150 - 400 K/cumm [facility] MPV 9.4 9.1 - 12.3 fL [facility] RBC 4.69 3.90 - 5.20 M/cumm [facility] MCV 89.6 81.3 - 96.4 fL [facility] MCH 29.9 27.1 - 33.3 pg [facility] MCHC 33.3 32.3 - 35.7 g/dL [facility] RDW CV 13.9 11.1 - 14.9 % [facility] RDW SD 45.5 35.7 - 48.1 fL [facility] NRBC abs 0.00 0.00 - 0.01 K/cumm [facility] Blood 07/10/2024 3:32 PM CDT 07/10/2024 3:32 PM CDT Corrine Robert NP LAB BLOOD ORDERABLES Final Resul t Performing Organization Address [facility] de Phone Number [facility] [address] [address] [place] [address] * Hemoglobin A1c (07/10/2024 3:32 PM CDT) [facility] Hgb A1C 5.6 4.0 - 5.6 % Estimated Average Glucose 114 mg/dL [facility] Comment: The ADA recommends reporting an estimated Average Glucose (eAG) with all Hemoglobin A1c results using the equation derived from a study of 507 normal and diabetic adults. Minority populations were underrepresented and children were not included. (Diabetes Care 31:3952-9144, 2008). The eAG is not equivalent to a fasting glucose. Blood 07/10/2024 3:32 PM CDT 07/10/2024 3:32 PM CDT Corrine Robert NP LAB BLOOD ORDERABLES Final Resul t Performing Organization Address City/[facility] Co de Phone Number [facility] [address] [address] [facility] [place] [address] * (ABNORMAL) Lipid panel (07/10/2024 3:32 PM [...] NCEP Expert Panel. Circulation 2004;110:227 3. Corona M et al. CHRIS Cardiol. 2020 July 26;5(5):540-548. doi: 10.1001/jamacardio.2020.0013 Current Interpretive Data was [...] last revised on 2017. Chol/HDL ratio 5 [facility]HA Blood 07/10/2024 3:32 PM CDT 07/10/2024 3:32 PM CDT us Corrine Robert NP LAB BLOOD ORDERABLES Final Resul t [facility] CABALLERO [address] [address] [place] [address] * Comprehensive metabolic panel (07/10/2024 3:32 PM [...] classification and Diagnosis of Diabetes Diabetes Care 202; 46: S19-S40. Current interpretive data was last [...] LAB BLOOD ORDERABLES Final Resul t T[facility]HA [address] [address] Department [place] [address] * Urinalysis reflex to microscopic [...] tendency for uric acid stone formation. Source: [facility] Current Interpretive Data was last revised on [...] for microscopic UA and culture not met. [facility] Urine, bladder 07/10/2024 3: 22 PM CDT 07/10/2024 3:35 PM CDT Corrine Robret NP LAB MICROBIOLOGY - GENERAL ORDER MATILDA Final Result Performing Organization Address [facility] de Phone Number TASHA ADA [address] [address] [place] [address] * Hepatitis C antibody Blood (07/10/2024 3:22 PM CDT) Hep C Ab Nonreactive Nonreactive Comment: Interpretive [...] ORDER MATILDA Final Result Performing Organization Address [facility] Co de Phone Number TASHA [address] [address] Burns [facility] [place] [address] * Hepatitis B core antibody, total Blood (07/10/2024 3:22 PM CDT) Pathologist [facility] Hep B core IgG/IgM Nonreactive Nonreactive Comment:Testing performed by : [facility], [address] [place]., [address] Blood 07/10/2024 3:22 PM CDT 07/11/2024 10:04 AM CDT Corrine Robert NP LAB MICROBIOLOGY - GENERAL ORDER MATILDA Final Result Performing Organization Address [facility] Co de Phone Number TASHA CABALLERO [address] [address] [place] [address] * Hepatitis B surface antibody (immune status) Blood (07/10/2024 3:22 PM CDT) Pathologist [facility] HBsAb (immune status) Nonreactive Comment: Interpretive Data [...] - GENERAL ORDER MATILDA Final Result [facility] ADA [address] [address] [place] [address] * Hepatitis B Surface Antigen Blood (07/10/2024 3:22 PM CDT) Pathologist [facility] HepBsAg Nonreactive Nonreactive Blood 07/10/2024 3:22 PM CDT 07/10/2024 3:31 PM CDT us Corrine Jakob SOFI LAB MICROBIOLOGY - GENERAL ORDER MATILDA Final Result T[facility]HA [address] [facility] Department [place] [address] * COLONOSCOPY (12/04/2018 10:58 AM CDT) Anatomical Region Laterality Modality Other Narrative Procedure Note Costa Gonzalez MD - 12/04/2018 10:58 AM CDT [facility] Patient Name: Lorie Coffee Procedure Date: 12/04/2018 10:58 AM Date of : 1965 Admit Type: Outpatient Age: 52 Gender: Female Attending MD: Costa Gonzalez M.D. Room: [facility] ENDOSCOPY ROOM 5 Note Status: Finalized Procedure: [...] was passed under direct vision.The PCF [id number] endoscope was introduced throughthe anus and advanced [...] On: 12/04/2018 10:58 AM Recognized by the [employer] for promoting quality in endoscopy Costa Gonzalez MD ENDOSCOPY PROCEDURES Final Result from Last 3 Months or Most Recently Relevant to Health Maintenance Insurance [facility] Advance Directives For more information, please contact: [phone] * Full Code (Latest Code Status on File) Date Activated Date Inactivated Comments 12/04/2018 9:23 AM 12/04/2018 4:19 PM Care Teams Byproduct Engineer Relationship Specialty [place] [address] [address] [facility] [address] [place] [address] PCP - General Family Medicine 07/10/24
--- OUTSIDE RECORDS SUMMARY | 2024-07-30 08:10 | XMS_ITS | Continuity of Care Document ---
Author Organization [facility] Address [address] [place] [address] [facility] [address] [place] [address] Phone Care Team Providers Care Hiv/Aids Care Nurse Name Role Phone Zendiamond Juan Antonio Unavailable Unavailable Procedures Procedure Date Office Consultation Advance Directives Directive Yes / No Effective Date File Name No Information Encounters Encounter Description Practice Location Reason(s) For Visit Diagnoses Date Provider Providers Copied on Encounter Office Consultation [facility], [address], [place], [place], [id number], [place] tel:[phone] [facility] No Information May- 7-200 8 Frankie Juan Antonio. [address] [facility] [address], [address], [place]. tel:[phone] Referring Provider: Fernanda Ruth OD, [address] [facility], [place], [address]. tel:[phone] Family History Family Member Type Diagnosis Age At Onset No Information Payers Payer name Insurance type Covered republican ID Authoriza tialbert(s) Medicaid [facility] [id number] Social History Type Description Quantity Date Captured [...]
--- OUTSIDE RECORDS SUMMARY | 2024-07-30 08:11 | XMS_ITS | Clinical Summary ---
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 Gender Identity Not on file Sexual Orientation Not on file Plan of Treatment Health Maintenance Due Date Last Done Comments Hepatitis C Virus (HCV) Screening 1965 TdaP Immunization 1965 Hepatitis B Immunization (1 of 3 - 19+ 3-dose series) 1984 Pap Smear 1986 Cervical Cancer Screening (CCS) 12/15/1995 HPV/Cotest 12/15/1995 Colonoscopy 2010 Colorectal Cancer Screening 2010 Cologuard 12/15/2015 Immunochemical Fecal Occult Blood 12/15/2015 Mammogram 12/15/2015 Pneumococcal Immunization (5 0+ years) (1 of 1 - PCV) 12/15/2015 Zoster Immunization (1 of 2) 12/15/2015 Influenza Immunization (#1) 2023 SARS-COV-2 Immunization ( - 2023- season) 2023 Respiratory Syncytial Virus (RSV) Immunization (Adult) (1 - 1-dose 75+ series) 2040 Meningococcal Immunization (ACWY) Aged Out No longer eligible based on patient's age to complete this topic Pneumococcal Immunization Combined Aged Out No longer eligible based on patient's age to complete this topic Rotavirus Immunization Aged Out No lo nger eligible based on patient's age to complete this topic
--- OUTSIDE RECORDS SUMMARY | 2024-07-30 08:11 | XMS_ITS | Patient Health Record ---
Author Organization [facility] [place] ([address]) Address [address] [place] [address] Care Team Providers Care Spa Manager/Esthetician Name Role Phone Yasmany Morales Primary Care Provider Unavailab Jessica Reveles Unavailable [phone] [facility], Provider Unavailable Unavailab maria fernanda Allergies Allergen (clinical drug ingredient) Drug/Non Drug Allergy documented on EMR Reaction Allergy Type Onset Date Status fluconazole Diflucan Rash Drug Allergy Activ e Reason For Referral No Information Medications Medication SIG (Take, Route, Frequency, Duration) Notes Start Date End Date Status ESTRADIOL 1 mg TK 1 T PO QD for 90 Active Clotrimazole 1 % 1 karen applied topically 2 times a day for 7 day(s) 03/05/2019 Active PEG-3350 WITH ELECTROLYTES - for 1 *Please review for potential replacement for e-prescription and drug interaction check* Active Estradiol 1 MG TK 1 T PO QD for 90 Active CLOTRIMAZOLE TOPICAL 1% 1 karen applied topically 2 times a day for 7 day(s) 03/05/2019 Active MICONAZOLE TOPICAL 2% 1 karen applied topically 2 times a day for 14 day(s) 03/05/2019 Active Miconazole Nitrate 2 % 1 karen applied topically 2 times a day for 14 day(s) 03/05/2019 Active TIOCONAZOLE TOPICAL 6.5% 1 APPFUL INTRAVAGINALLY ONCE A DAY (AT BEDTIME) for 1 DAY(S) *Please review for potential replacement for e-prescription and drug interaction check* 03/05/2019 Active Social History Tobacco Use: Social History Observation Description Date Details (start date - stop date) Never Smoker NA - NA Smoking Smart Form: Question Answer Notes Are you a: never smoker Problems Problem Type SNOMED Code ICD Code Onset Dates Problem Status W/U Status Risk Notes Problem Adverse effect o f antifungal antibiotics, systemically used, subsequent encounter (T36.7X5D) Active confirmed Problem Eruption of skin (290646195) Rash and other nonspecific skin eruption (R21) Active confirmed Problem Adverse reaction caused by drug (51438813) Adverse effect of other drugs, medicaments and biological substances, initial encounter (T50.995A) Active confirmed Problem Drug allergy (217375032) Allergy status to other drugs, medicaments and biological substances status (Z88.8) Active confirmed Encounters Encounter Location Date Provider Diagnosis [address] [address] 09/10/2023 Provider [facility]Migration Adverse effect of antifungal antibiotics, systemically used, subsequent encounter T36.7X5D Assessments Encounter Date Diagnosis (ICD Code) Assessment Notes Treatment Notes Treatment Clinical Notes Section Notes 09/10/2023 Adverse effect of antifungal antibiotics, systemically used, subsequent encounter (ICD-10 - T36.7X5D) Plan Of Treatment No Information Insurance Providers Payer Name Payer Address Payer Phone Subscriber Number Group Number Insured Name Patient Relationship to Insured Coverage Start Date Coverage End Date [id number] [place] [id number] Phani Bateman Spouse - patient is the spouse of the insured Medical (General) History Medical History History ICD Code Acute vaginitis Surgical History Surgery Date(Month/Year) Cholecystecomy Tubal Ligation
--- OUTSIDE RECORDS SUMMARY | 2024-07-30 08:11 | XMS_ITS ---
Author Organization [facility] [place] ([address]) Address [address] [place] [address] Care Team Providers Care Orthopedic Rn Name Role Phone Yasmany Morales Primary Care Provider Unavailab Jessica Reveles Unavailable [phone] [facility], Provider Unavailable Unavailab le Allergies Allergen (clinical drug ingredient) Drug/Non Drug Allergy documented on EMR Reaction Allergy Type Onset Date Status fluconazole Diflucan Rash Drug Allergy Activ e REASON FOR VISIT Multum To [facility] Conversion Encounter Medications Medication SIG (Take, Route, Frequency, Duration) Notes Start Date End Date Status Clotrimazole 1 % 1 karen applied topically 2 times a day for 7 day(s) 03/05/2019 Active PEG-3350 WITH ELECTROLYTES - for 1 *Please review for potential replacement for e-prescription and drug interaction check* Active Estradiol 1 MG TK 1 T PO QD for 90 Active Miconazole Nitrate 2 % 1 karen applied topically 2 times a day for 14 day(s) 03/05/2019 Active TIOCONAZOLE TOPICAL 6.5% 1 APPFUL INTRAVAGINALLY ONCE A DAY (AT BEDTIME) for 1 DAY(S) *Please review for potential replacement for e-prescription and drug interaction check* 03/05/2019 Active Encounters Encounter Location Date Provider Diagnosis [place] - [place] [address] 09/10/2023 Provider [facility] Adverse effect of antifungal [...] karen applied topica lly 2 times a day for 7 day(s) 03/05/2019 Miconazole Nitrate 2 % 1 karen applied topically 2 times a day for 14 day(s) 03/05/2019 TIOCONAZOLE TOPICAL 6.5% 1 APPFUL INTRAVAGINALLY ONCE A DAY (AT BEDTIME) for 1 DAY(S) 03/05/2019 *Please review for potential replacement for e-prescription and drug interaction check* Progress Notes * Lorie BATEMAN SDOB:1965 (58 yo F)Acc No.[id number]:09/10/2023 Patient: Reji JOSEPHll Ang Provider: Jose Romero :1965 A ge:57 Y S ex:Female Date:09/10/2023 Address:[address] [place], [place] [id number] Pcp:Yasmany Morales Subjective: * Chief Complaints: * [...] * Electronic signature of Riri DWYER-Migration on 07/30/2024 at 08:10 AM CDT Sign off status: Pending * Provider: Jose Romero Date: 09/10/2023 Generated for Claritza marroquin/Isaias/Julius on: 0 07/30/2024 08:10 AM CDT
== END 2024-07-30 07:54 | disposition home or self-care (01) ==
LOC: ANHIMG 08:04
PROVIDERS: PCP Nurse Practitioner; Visit Provider Nurse Practitioner
DX: Z12.31 Encounter for screening mammogram for malignant neoplasm of breast (principal)
CPT/HCPCS: 77063; 77067

== ENCOUNTER 2024-11-21 14:37 | Outpatient (CLI) | payer OTHER, SELFPAY ==
--- OUTSIDE RECORDS SUMMARY | 2007-06-02 08:24 | XMS_ITS | Continuity of Care Document ---
Author Organization [facility] Address [address] [place] [address] [facility] [address] [place] [address] Phone Care Team Providers Care Immigration Manager Name Role Phone Zendiamond Juan Antonio Unavailable Unavailable Procedures Procedure Date Office Consultation Advance Directives Directive Yes / No Effective Date File Name No Information Encounters Encounter Description Practice Location Reason(s) For Visit Diagnoses Date Provider Providers Copied on Encounter Office Consultation [facility], [address] [place], [place], [id number], [place] tel:[phone] [facility] No Information May- 7-200 8 Frankie Juan Antonio. [address] [facility] [address], [address], [place]. tel:[phone] Referring Provider: Fernanda Ruth OD, [address] [facility], [place], [address]. tel:[phone] Family History Family Member Type Diagnosis Age At Onset No Information Payers Payer name Insurance type Covered constitution party ID Authoriza tialbert(s) Medicaid [facility] [id number] Social History Type Description Quantity Date Captured Comments Sex Female Smoking Status No Information Chief Complaint And Reason For Visit No Information Reason For Referral Reason For Referral No Information History Of Present Illness Encounter Date Complaint History Of Prese nt Illness No Information Functional Status Date Functional Assessmen t No Information Instructions Date Instruction Additional Infor mation No Information Assessments Type Assessment Date No Information Patient Care Teams Name Effective Dates (start - stop) Status Members No Information
--- OUTSIDE RECORDS SUMMARY | 2023-09-10 16:30 | XMS_ITS ---
Author Organization [facility] ([address]) Address [address] [place] [address] Care Team Providers Care Conduit Bender Name Role Phone Yasmany Morales Primary Care Provider Unavailab Jessica Reveles Unavailable [phone] [facility]-Migration, Provider Unavailable Unavailab le Allergies Allergen (clinical drug ingredient) Drug/Non Drug Allergy documented on EMR Reaction Allergy Type Onset Date Status fluconazole Diflucan Rash Drug Allergy Activ e REASON FOR VISIT Multum To [facility] Conversion Encounter Medications Medication SIG (Take, Route, Frequency, Duration) Notes Start Date End Date Status Clotrimazole 1 % 1 karen applied topically 2 times a day; Duration: 7 day(s) 03/05/2019 Active PEG-3350 WITH ELECTROLYTES - ; Duration: 1 *Please review for potential replacement for e-prescription and drug interaction check* Active Estradiol 1 MG TK 1 T PO QD; Duration: 90 Active Miconazole Nitrate 2 % 1 karen applied topically 2 times a day; Duration: 14 day(s) 03/05/2019 Active TIOCONAZOLE TOPICAL 6.5% 1 APPFUL INTRAVAGINALLY ONCE A DAY (AT BEDTIME); Duration: 1 DAY(S) *Please review for potential replacement for e-prescription and drug interaction check* 03/05/2019 Active Encounters Encounter Location Date Provider Diagnosis [facility] - [facility] [address] [place] [address] 09/10/2023 Provider ZZ-Migration Adverse effect of antifungal antibiotics, systemically used, subsequent encounter T36.7X5D Assessments Encounter Date Diagnosis (ICD Code) Assessment Notes Treatment Notes Treatment Clinical Notes Section Notes 09/10/2023 Adverse effect of antifungal antibiotics, systemically used, subsequent encounter (ICD-10 - T36.7X5D) Plan Of Treatment Medication Medication Name Sig Start Date Stop Date Notes Clotrimazole 1 % 1 karen applied topica lly 2 times a day; Duration: 7 day(s) 03/05/2019 Miconazole Nitrate 2 % 1 karen applied topically 2 times a day; Duration: 14 day(s) 03/05/2019 TIOCONAZOLE TOPICAL 6.5% 1 APPFUL INTRAVAGINALLY ONCE A DAY (AT BEDTIME); Duration: 1 DAY(S) 03/05/2019 *Please review for potential replacement for e-prescription and drug interaction check* Progress Notes * Lorie BATEMAN SDOB:1965 (58 yo F)Acc No.[id number]:09/10/2023 Patient: Lorie JOSEPH S Provider: Jose Romero :1965 A ge:57 Y S ex:Female Date:09/10/2023 Address:[address] [place], [place] [id number] Pcp:Yasmany Morales Subjective: * Chief Complaints: * 1 . Multum To [facility] Conversion Encounter. * Medical History: * Medications: T aking Estradiol 1 MG Tablet TK 1 T PO QD , Taking PEG-3350 WITH ELECTROLYTES - POWDER FOR RECONSTITUTION , Notes to Pharmacist: *Please review for potential replacement for e-prescription and drug interaction check* * Allergies: D iflucan: Rash - Allergy. Objective: * Vitals: Assessment: * Assessment: 1. A dverse effect of antifungal antibiotics, systemically used, subsequent encounter - T36.7X5D (Primary) Plan: * Treatment: * Billing Information: * Visit Code: * Procedure Codes: * Electronic signature of Riri DWYER-Migration on 11/21/2024 at 02:42 PM CDT Sign off status: Pending * Provider: Jose Romero Date: 09/10/2023 Generated for Claritza marroquin/sIaias/Julius on: 11/21/2024 02:42 PM CDT
--- NOTE | ~2024-11-21 | US_ITS ---
EXAMINATION: US transvaginal INDICATION: Pelvic pain Comparison:No prior studies for comparison. TECHNIQUE: Multiple transabdominal and endovaginal sonographic images of the pelvis performed. FINDINGS: The uterus is surgically absent. The right ovary is atrophic measuring 1.2 x 0.7 x 0.9 cm. The left ovary is not visualized. No adnexal masses or fluid collections. IMPRESSION: 1. Unremarkable pelvic ultrasound. Reviewed, dictated and finalized at location O.
--- OUTSIDE RECORDS SUMMARY | 2024-11-21 14:43 | XMS_ITS | Patient Health Record ---
Author Organization [facility] [place] ([address]) Address [address] [place] [address] Care Team Providers Care Meter Tester Primary Name Role Phone Yasmany Morales Primary Care Provider Jessica Goodwin Unavailable [phone] Allergies Allergen (clinical drug ingredient) Drug/Non Drug Allergy documented on EMR Reaction Allergy Type Onset Date Status fluconazole Diflucan Rash Drug Allergy Activ e Reason For Referral No Information Medications Medication SIG (Take, Route, Frequency, Duration) Notes Start Date End Date Status ESTRADIOL 1 mg TK 1 T PO QD; Duration: 90 Active Clotrimazole 1 % 1 kaern applied topically 2 times a day; Duration: 7 day(s) 03/05/2019 Active PEG-3350 WITH ELECTROLYTES - ; Duration: 1 *Please review for potential replacement for e-prescription and drug interaction check* Active Estradiol 1 MG TK 1 T PO QD; Duration: 90 Active CLOTRIMAZOLE TOPICAL 1% 1 karen applied topically 2 times a day; Duration: 7 day(s) 03/05/2019 Active MICONAZOLE TOPICAL 2% 1 karen applied topically 2 times a day; Duration: 14 day(s) 03/05/2019 Active Miconazole Nitrate 2 [...] (T36.7X5D) Active confirmed Problem Eruption of skin (109007817) Rash and other nonspecific skin eruption (R21) Active confirmed Problem Adverse reaction caused by drug (23482066) Adverse effect of other drugs, medicaments and biological substances, initial encounter (T50.995A) Active confirmed Problem Drug allergy (768618273) Allergy status to other drugs, medicaments and biological substances status (Z88.8) Active confirmed Plan Of Treatment No Information Insurance Providers Payer Name Payer Address Payer Phone Subscriber Number Group Number Insured Name Patient Relationship to Insured Coverage Start Date Coverage End Date [facility] [id number] [facility] [place] [address] [id number] Phani Bateman Spouse - patient is the spouse of the insured Medical (General) History Medical History History ICD Code Acute vaginitis Surgical History Surgery Date(Month/Year) Cholecystecomy Tubal Ligation
--- OUTSIDE RECORDS SUMMARY | 2024-11-21 14:43 | XMS_ITS | Clinical Summary ---
Author Organization [facility] Address [address] [place] [address] Care Team Providers Care Drawing Press Operator Name Role Phone Corrine Robert NP Primary Care Provider [phone] Allergies Active Allergy Reactions Criticality Noted Date Comments Metronidazole Hives Medium 01/04/2019 Fluconazole Hives,Rash Medium 01/04/2019 Shellfish Derived Itching Low 04/05/2020 Medications valACYclovir (VALTREX) 500 mg tablet TK 1 T PO Q 12 H FOR 7 DAYS THEN 1 T DAILY 0 9 Active ascorbic acid, vitamin C, 1,000 mg capsule Take 1 capsule every day by oral route. Active cyanocobalamin (Vitamin B-12) 1,000 mcg tablet Take 1 tablet every day by oral route. Active cyclobenzaprine (FLEXERIL) 5 mg tablet 1 tab at bedtime Active traMADoL (ULTRAM) 50 mg tabletIndicatio ns:Pelvic pain Take 1 tablet (50 mg total) by mouth every 6 (six) hours as needed for pain for up to 14 days 40 tablet 5 Active naloxone (NARCAN) 4 mg/actuation spray,non-aeros olIndications:P elvic pain Administer 1 spray into affected nostril(s) as needed for opioid reversal Call 911. Administer a single spray in one nostril. Repeat every 3 minutes as needed if no or minimal response. 1 each 5 Active Active Problems Problem Noted Date Diagnosed Date Encounter for weight management 10/28/2024 Assessment & Plan (10/28/2024 8:26 PM CDT): Wt Readings from Last 3 Encounters: 10/18/24 77.9 kg (171 lb 12.8 oz) 07/10/24 77.8 kg (171 lb 9.6 oz) 12/18/22 82 kg (180 lb 12.4 oz) Adverse effect of antifungal antibiotics, systemically used, subsequent encounter 10/17/2024 Adverse effect of other drug s, medicaments and biological substances, initial encounter 10/17/2024 Rash 10/17/2024 Class 1 obesity without seri ous comorbidity with body mass index (BMI) of 31.0 to 31.9 in adult 07/30/2024 Assessment & Plan (10/28/2024 8:28 PM CDT): BMI Follow-up includes: education provided. Assessment & Plan (07/30/2024 6:45 AM CDT): Wt Readings from Last 3 Encounters: 07/10/24 77.8 kg (171 lb 9.6 oz) 12/18/22 82 kg (180 lb 12.4 oz) 09/14/20 78 kg (172 lb) BMI Follow-up includes: education provided. Prediabetes 07/10/2024 Assessment & Plan (10/28/2024 8:25 PM CDT): A1c at 5.6 indicates prediabetes. Advised increased exercise and dietary changes to manage blood sugar. Emphasized consistent physical activity to utilize blood sugar. - Encourage increased physical activity to achieve 150 minutes per week. - Advise dietary modifications to reduce sugar intake. Noncompliance with treatment 07/04/2023 Overview (10/17/2024): physical therapy 2023 cannot make appts but good rehab potential ... Acute headache 06/06/2023 Overview (10/17/2024): resolved 02/2023 BENITO/htn urgent: CBC nl TSH nl INR 1.0 Trop neg x3 (1st one mildy elevated) CMP GFR 49 Cr 1.27 fts nl T 212 G 241 H 39 L 125 lipase neg UA neg (CT a/p sm hiatal hernia, head, CTA head and neck , Myocardial perfusion stress test, CXR, EKG nonsp Twaves changes, nsr, ECHO 65-70% nl) Renal insufficiency 06/06/2023 Overview (10/17/2024): 03/19 ED BMP gfr 49--repeat due Epiphora 06/04/2023 Overview (10/17/2024): has seen ophthal [facility] Vulvovaginitis 06/04/2023 Overview (10/17/2024): chronic... Elevation of levels of liver transaminase levels 03/13/2023 Essential hypertension 03/13/2023 Overview (10/17/2024): baseline EKG normal normal in ED 03/19 ECHO nl 65-70% EF nl Assessment & Plan (10/28/2024 8:22 PM CDT): Blood pressure well-controlled. Focus on weight management for further health improvement. BP Readings from Last 3 Encounters: 10/18/24 128/78 07/10/24 133/80 12/18/22 120/85 Genital herpes simplex 03/13/2023 Hyperlipidemia 03/13/2023 Assessment & Plan (10/28/2024 8:23 PM CDT): Slightly elevated cholesterol levels. Recommended dietary changes and increased exercise to lower cholesterol. - Advise dietary modifications to reduce intake of greasy, fried, and fatty foods. - Encourage increased physical activity. Mixed anxiety and depressive disorder 03/13/2023 Hypertensive urgency 03/07/2023 Epiphora due to excess lacrimation of both [...] (09/14/2018): Added automatically from request for surgery [id number] Lower abdominal pain 09/14/2018 Overview (09/14/2018): Added automatically from request for surgery [id number] Epigastric abdominal pain 09/14/2018 Overview (09/14/2018): Added automatically from request for surgery [id number] Resolved Problems Problem Noted Date Diagnosed Date Resolved Date Colon cancer screening 09/14/201807/10 Overview (09/14/2018): Added automatically from request for surgery [id number] Encounters Date Type Department Care Team Description 10/18/2024 3:00 PM CDT Office Visit [facility] at [address] [address] Corrine Robert NP Essential hypertension (Primary Dx); Pelvic pain; Mixed hyperlipidemia; Prediabetes; Encounter for weight management; Screening for depression; Class 1 obesity without serious comorbidity with body mass index (BMI) of 31.0 to 31.9 in adult, unspecified obesity type 09/21/2024 Nurse Triage [facility] at [address] [address] Corrine Robert NP from Last 3 Months Immunizations Immunization Administration Dates Next Due Influenza, Split 03/28/2017 Influenza, Unspecified 05/27/2024(Deferr ed: Patient Refused),03/08/2024(Deferred: Patient Refused) Tdap 12/07/2018 Surgical History Surgery Date Site/Laterality Comments CHOLECYSTECTOMY HYSTERECTOMY TUBAL LIGATION Medical History Medical History Date Comments Hypertension Colon cancer screening 09/14/2018 Added aut omatically from request for surgery [id number] Family History Medical History Relation Name Comments [...] PHQ-2 Answer Date Recorded PHQ-2 Total Score 3 10/18/2024 PHQ-9 Answer Date Recorded PHQ-9 Total Score 17 10/18/2024 Personal Safety Answer Date Recorded Have you ever been in or are you currently in a harmful physical or emotional relationship or is someone making you feel afraid or unsafe? 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 Gender Identity Not on file Sexual Orientation Not on file Obstetrics History Last Filed Vital Signs Vital Sign Reading Time Taken Comments Blood Pressure 128/78 10/18/2024 3:01 PM CDT Pulse 79 10/18/2024 3:01 PM CDT Temperature 36.7 C (98 F) 07/10/2024 2:28 PM CDT Respiratory Rate 20 07/10/2024 2:28 PM CDT Oxygen Saturation 98% 07/10/2024 2:28 PM CDT Inhaled Oxygen Concentration - - Weight 77.9 kg (171 lb 12.8 oz) 10/18/2024 3:01 PM CDT Height 157.5 cm (5' 2) 10/18/2024 3:01 PM CDT Body Mass Index 31.42 10/18/2024 3:01 PM CDT Plan of Treatment Health Maintenance Due Date Last Done Comments Zoster Vaccine (1 of 2) 12/15/2015 Influenza Vaccine (#1) 2024 03/28/2017 Regular Well Visit/Exam 18-64 07/10/2025 07/10/2024 Breast Cancer Screening-Mammogram 07/30/2025 07/30/2024 Depression Screening 10/18/2025 10/18/2024, 10/18/2024, 07/10/2024, Additional history exists Colon Cancer Screening-Colonoscopy 12/04/2028 12/04/2018 DTaP/Tdap/Td Vaccine [...] Procedure Name Priority Date/Time Associated Diagnosis Comments SCREENING MAMMOGRAM 2D BILATERAL Schedule Routine, Read Routine (OP Routine) 07/30/2024 2:34 PM CDT HEPATITIS C ANTIBODY Routine 07/10/2024 3:22 PM CDT Need for hepatitis C screening test COLONOSCOPY 12/04/2018 10:58 AM CDT from Last 3 Months or Most Recently Relevant to Health Maintenance Results * Screening Mammogram 2D Bilateral (07/30/2024 2:34 PM CDT) Anatomical Region Laterality Modality Breast Bilateral Mammography Historical Provider MD RUIZ MAMMO PROCEDURES Frida l Result * Hepatitis C antibody Blood (07/10/2024 3:22 [...] - GENERAL [place] [id number] [address] [facility] [place] [address] * COLONOSCOPY (12/04/2018 10:58 AM CDT) Anatomical Region Laterality Modality Other Narrative Procedure Note Costa Gonzalez MD - 12/04/2018 10:58 AM CDT [facility] Patient Name: Lorie Bateman Procedure Date: 12/04/2018 10:58 AM Date of : 1965 Admit Type: Outpatient Age: 52 Gender: Female Attending MD: Costa Gonzalez M.D. Room: [facility] ENDOSCOPY ROOM 5 Note Status: [...] The scope was passed under direct vision.The PC [id number] endoscope was introduced throughthe anus and advanced [...] On: 12/04/2018 10:58 AM Recognized by the [employer] for promoting quality in endoscopy Costa Gonzalez MD ENDOSCOPY PROCEDURES Final Result from Last 3 Months or Most Recently Relevant to Health Maintenance Insurance [facility] Advance Directives For more information, please contact: [phone] * Full Code (Latest Code Status on File) Date Activated Date Inactivated Comments 12/04/2018 9:23 AM 12/04/2018 4:19 PM Care Teams Drawing Press Operator Relationship Specialty [place] [address] [place] [address] [address] PCP - General Family Medicine 07/10/24
--- OUTSIDE RECORDS SUMMARY | 2024-11-21 14:43 | XMS_ITS | Clinical Summary ---
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 Gender Identity Not on file Sexual Orientation Not on file Plan of Treatment Health Maintenance Due Date Last Done Comments Hepatitis C Virus (HCV) Screening 1965 TdaP Immunization 1965 Hepatitis B Immunization (1 of 3 - 19+ 3-dose series) 1984 Pap Smear 1986 Cervical Cancer Screening (CCS) 12/15/1995 HPV/Cotest 12/15/1995 Cologuard 2010 Colonoscopy 2010 Colorectal Cancer Screening 2010 Immunochemical Fecal Occult Blood 2010 Pneumococcal Immunization (5 0+ years) (1 of 1 - PCV) 12/15/2015 Zoster Immunization (1 of 2) 12/15/2015 SARS-COV-2 Immunization (1 - 2023- season) 2023 Influenza Immunization (#1) 2024 Respiratory Syncytial Virus (RSV) Immunization (Adult) (1 - 1-dose 75+ series) 2040 Human Papillomavirus (HPV) Immunization Aged Out No longer eligible b ased on patient's age to complete this topic Meningococcal Immunization (ACWY) Aged Out No longer eligible based on patient's age to complete this topic Rotavirus Immunization Aged Out No lo nger eligible based on patient's age to complete this topic
--- OUTSIDE RECORDS SUMMARY | 2024-11-21 14:43 | XMS_ITS | Clinical Summary ---
Author Organization [facility] Address [address] [place] [address] Care Team Providers Care Certified Endoscopy Technician Name Role Phone Yasmany Brower MD Primary Care Provider Allergies Active Allergy Reactions Criticality Noted Date [...] drink = 0.6 oz pur e alcohol) [facility] Utilities Answer Date Recorded In the [...] place to sleep or slept in a senior care (including now)? No 03/07/2023 Comments No Sex and Gender Information Value Date Recorded Sex Assigned at Not on file Legal Sex Female 7:14 AM ACTUARIAL DIRECTOR Gender Identity Not on file Sexual Orientation Not on file Last Filed Vital Signs Vital Sign Reading Time Taken Comments Blood Pressure 122/78 03/07/2023 1:37 PM ACTUARIAL DIRECTOR Pulse 71 03/07/2023 8:12 AM ACTUARIAL DIRECTOR Temperature 36.7 C (98 F) 03/07/2023 1:37 PM ACTUARIAL DIRECTOR Respiratory Rate 23 03/07/2023 1:37 PM ACTUARIAL DIRECTOR Oxygen Saturation 99% 03/07/2023 1:37 PM ACTUARIAL DIRECTOR Inhaled Oxygen Concentration - - Weight 83.3 kg (183 lb 10.3 oz) 03/06/2023 8:26 PM ACTUARIAL DIRECTOR Height 157.5 cm (5' 2) 03/06/2023 8:26 PM ACTUARIAL DIRECTOR Body Mass Index 33.59 03/06/2023 8:26 PM ACTUARIAL DIRECTOR Plan of Treatment Health Maintenance Due Date [...] age to complete this topic Insurance [place] [address] Advance Directives * Full Code (Latest Code Status on File) Date Activated Date Inactivated Comments 03/07/2023 1:24 AM 03/07/2023 4:59 PM Care Teams Certified Endoscopy Technician Relationship Specialty Start Date End Date Yasmany Brower MD [address] [place] [address] PCP - General FAMILY PRACTICE 04/05/20
== END 2024-11-21 14:38 | disposition home or self-care (01) ==
PROVIDERS: PCP Nurse Practitioner; Visit Provider Nurse Practitioner
DX: R10.2 Pelvic and perineal pain (principal)
CPT/HCPCS: 76830